=== PATIENT | male | born 1940 | race Caucasian/White ===

== ENCOUNTER 2018-09-20 13:38 | Inpatient (IN) | payer OTHER ==
[~2018-09-20] VITALS: Ht 177.8 cm; Wt 85.3 kg
--- NOTE | 2018-09-20 02:05 | NUR ---
ROUNDS PATIENT SHIVERING IN BED, COMPLAINING ABOUT BEING COLD. TEMPERATURE TAKEN PER RECTAL, NOTED RECTAL TEMP = 101.6. COOLING MEASURES TAKEN AND TYLENOL GIVEN. WILL CONTINUE TO MONITOR. Addendum: 09/21/18 at 0339 by DO CARBAJAL RN RN CORRECTED DATE: 09/21/18 0205
[2018-09-20] MEDS ORDERED: SODIUM CHLORIDE 0.9% 1,000 ML IVB ONE (14:54)
[2018-09-20] MEDS ORDERED: PROMETHAZINE HCL 25 MG/ML 1ML IV PRN (15:00)
[2018-09-20] MEDS ORDERED: PANTOPRAZOLE 40 MG/10 ML VIAL INJ IV ONE (15:00)
[2018-09-20 15:28] LABS: Basophils # (auto) 0.1 uL; Basophils % (auto) 0.9 % (0.0-2.0); Eosinophils # (auto) 0 uL; Hematocrit 40.5 % (41.0-53.0); Hemoglobin 13.4 g/dL (13.5-17.5); Lymphocytes # (auto) 1.1 uL; Mean Corpuscular Hemoglobin 30.6 pg (28.0-32.0); Mean Corpuscular Volume 92.8 fL (80.0-100.0); Monocytes # (auto) 0.8 uL; Monocytes % (auto) 5.1 % (0.0-12.0); Neutrophils # (auto) 14.3 uL; Platelet Count (auto) 119 10^3/uL (140-450); Red Blood Cells 4.36 10^6/uL (4.5-5.90); Red Cell Distribution Width 15.3 % (11.8-14.3); White Blood Cell 16.5 10^3/uL (4.4-10.8)
[2018-09-20 15:37] LABS: Albumin 2.8 g/dL (3.4-5.0); Calcium 7.9 mg/dL (8.5-10.1); Potassium 3.8 mmol/L (3.5-5.1)
[2018-09-20 15:41] LABS: BUN/Creatinine Ratio 17.4; Bilirubin, Total 1.4 mg/dL (0.2-1.0); Total Protein 7.7 g/dL (6.4-8.2)
[2018-09-20] MEDS ORDERED: PANTOPRAZOLE 40 MG TAB PO ONE (16:30)
[2018-09-20 17:01] LABS: Magnesium 0.7 mg/dL (1.6-2.6)
[2018-09-20] MEDS: MAGNESIUM SULFATE 1GM/100ML 100 ML IV SCH ×3 (17:19→21:27)
[2018-09-20 17:25] LABS: INR 1.21 (0.9-1.15); Partial Thromboplastin Time 33.1 sec (23.78-33.04); Prothrombin Time 12.8 sec (9.27-12.13)
[2018-09-20] MEDS ORDERED: cefTRIAXone 1GM/50ML D5W 50 ML IV ONE (18:30)
[2018-09-20] MEDS ORDERED: ACETAMINOPHEN 650 mg PER 20 mL UD PO ONE (18:45)
[2018-09-20] MEDS ORDERED: ACETAMINOPHEN 650 MG RECT SUPP PR ONE (18:45)
[2018-09-20] MEDS ORDERED: LORazepam 2MG/ML-1ML VIAL ONE (18:47)
[2018-09-20] MEDS ORDERED: SUCCINYLCHOLINE CHLORIDE 20 MG/ML 10ML VIAL IV ONE ×2 (18:49→19:00)
[2018-09-20] MEDS ORDERED: ETOMIDATE (2MG/ML) 20ML VIAL IV ONE ×2 (18:49→19:00)
[2018-09-20] MEDS ORDERED: MIDAZOLAM DRIP 50 mg/50mL 0 ML IV ONE (18:55)
[2018-09-20] MEDS ORDERED: LORazepam 2MG/ML-1ML VIAL IV ONE (19:00)
[2018-09-20 19:25] LABS: Urine Bacteria MOD /hpf (None Seen); Urine Blood TRACE /uL (Negative); Urine Mucus FEW (None Seen); Urine Specific Gravity 1.011 (1.001-1.035); Urine WBC 155 /hpf (0 - 3)
[2018-09-20] MEDS ORDERED: NITROGLYCERIN 0.4 MG SL TAB SL PRN (21:00)
[2018-09-20] MEDS ORDERED: MORPHINE SULF INJ 2 MG/ML SYRINGE 1ML IV PRN (21:00)
[2018-09-20] MEDS ORDERED: ALBUTEROL SULF 2.5 MG/0.5ML(0.5%) NEB SOLN NEB PRN (21:00)
[2018-09-20] MEDS ORDERED: LEVOFLOXACIN 250MG 50 ML IV ONE (21:00)
[2018-09-20] MEDS ORDERED: IPRATROPIUM BROM 0.5 MG/2.5ML INH SOL NEB PRN (21:00)
[2018-09-20] MEDS ORDERED: DEXTROSE (50%) 50ML SYRG IV PRN (21:00)
[2018-09-20] MEDS ORDERED: HYDROcodone-ACET 5/325MG TAB PO PRN (21:00)
[2018-09-20] MEDS ORDERED: ONDANSETRON HCL 4 MG/2 ML VIAL IV PRN (21:00)
[2018-09-20] MEDS: SODIUM CHLORIDE 0.9% 1,000 ML IV SCH (21:24)
[2018-09-20] MEDS ORDERED: ACETAMINOPHEN 500 MG TAB PO ONE (22:00)
[2018-09-20 22:02] LABS: Hematocrit 38.1 % (41.0-53.0); Hemoglobin 12.6 g/dL (13.5-17.5)
--- NOTE | 2018-09-20 22:15 | NUR ---
RECEIVED REPORT FROM CUTTER HEAD SHARPENER.
[2018-09-20 22:30] VITALS: BP 110/51
--- NOTE | 2018-09-20 22:30 | NUR ---
Admit to [facility] admitted to [facility] via gurney on deputy coroner, and portable 02 ON 6L SIMPLE MASK. Patient transfered to bed, connected to unit monitoring and oxygen, and weighed by bre[facility]. [facility]. Patient oriented to DO CARBAJAL, primary RN, unit, room, bed, and unit policies regarding patient care and visiting hours. All questions and concerns addressed, patient verbalized understanding. Bed in lowest position, side rails up x2, call light wtihin reach. Will continue to monuitor.
[2018-09-21] VITALS (47 sets, daily range): BP systolic 77–151; BP diastolic 35–80
[2018-09-21] MEDS: InsuLIN REG 1unit/0.01ml Soln (100units/ml) SC SCH ×4 (00:59→17:36)
[2018-09-21] MEDS: ACCU-CHEK COMFORT CURVE STRIP VI SCH ×4 (00:59→17:36)
[2018-09-21] MEDS: hydrALAZINE HCL 25 MG TAB PO SCH ×3 (01:03→21:53)
[2018-09-21] MEDS: ATORVASTATIN 20 MG TAB PO SCH ×2 (01:03→21:53)
--- NOTE | 2018-09-21 01:05 | NUR ---
RELAYED ELEVATED TROPONIN LABS TO HOSPITALIST. NO NEW ORDERS.
[2018-09-21] MEDS: ACETAMINOPHEN 325 MG TAB PO PRN ×2 (02:30→09:12)
--- NOTE | 2018-09-21 03:40 | NUR ---
REASSESSED TEMPERATURE. TEMP INCREASED TO 102.4 DEGREES FAHRENHEIT. ICE PACKS AND COOL COMPRESS APPLIED. WILL CONTINUE TO MONITOR.
--- NOTE | 2018-09-21 05:18 | NUR ---
PAGED HOSPITALIST IN REGARDS TO POSITIVE BLOOD CULTURES, AWAITING CALL BACK.
--- NOTE | 2018-09-21 05:25 | NUR ---
HOSPITALIST CALLED BACK. RELAYED BLOOD CULTURE RESULTS, RECEIVED NO NEW ORDERS AT THIS TIME.
--- NOTE | 2018-09-21 05:35 | NUR ---
MORNING CARE PATIENT REFUSED BED BATH. PARTIAL LINEN CHANGE AND GOWN CHANGED. NO SIGNS OR SYMPTOMS OF SOB, PAIN OR DISTRESS. REPOSITIONED PATIENT FOR COMFORT. BED IN LOWEST POSITION, SIDE RAILS UP X2, CALL LIGHT WITHIN REACH.
[2018-09-21 06:01] LABS: Basophils # (auto) 0 uL; Basophils % (auto) 0.2 % (0.0-2.0); Eosinophils # (auto) 0 uL; Hematocrit 38.8 % (41.0-53.0); Lymphocytes % (auto) 6.1 % (10.0-50.0); Mean Corpuscular Hemoglobin 30.7 pg (28.0-32.0); Mean Corpuscular Hgb Conc. 33.5 g/dL (32.0-36.0); Mean Corpuscular Volume 91.5 fL (80.0-100.0); Monocytes # (auto) 0.8 uL; Monocytes % (auto) 5.2 % (0.0-12.0); Neutrophils # (auto) 14.3 uL; Neutrophils % (auto) 88.5 % (37.0-80.0); Platelet Count (auto) 112 10^3/uL (140-450); Red Blood Cells 4.24 10^6/uL (4.5-5.90); Red Cell Distribution Width 14.9 % (11.8-14.3); White Blood Cell 16.2 10^3/uL (4.4-10.8)
[2018-09-21 06:29] LABS: Potassium 3.7 mmol/L (3.5-5.1)
[2018-09-21 06:36] LABS: Albumin 2.5 g/dL (3.4-5.0); BUN/Creatinine Ratio 18.2; Calcium 7.9 mg/dL (8.5-10.1)
[2018-09-21 06:38] LABS: Bilirubin, Total 1.1 mg/dL (0.2-1.0); Total Protein 7.2 g/dL (6.4-8.2)
--- NOTE | 2018-09-21 06:45 | NUR ---
END OF SHIFT PATIENT IN BED SLEEPING. NO SIGNS OR SYMPTOMS OF SOB, PAIN OR DISTRESS. ICE PACKS PLACED UNDER ARMS DUE TO SLIGHTLY INCREASED RECTAL TEMP OF 100.2 DEGREES FAHRENHEIT. PATIENT CURRENTLY ON SIMPLE MASK 5L , SAT - 98%. BED IN LOWEST POSITION, SIDE RAILS UP X2, CALL LIGHT WITHIN REACH. WILL ENDORSE CARE TO DAY SHIFT RN.
--- NOTE | 2018-09-21 07:25 | NUR ---
PT. ASSESSED FOR PRN. MN. TX. , NO RESP. DISTRESS OR SOB NOTED AT THIS TIME. PT. IS IN BED WITH ICE PACKS UNDER HIS ARM PITS SHIVERING. PT. WAS RUNNING A TEMP., HR 100,RESP. 24, SP02 96%. PT'S SPO2 TO DOES NOT COME IN ACCURATELY SOMETIMES, BECAUSE OF HIS SHIVERING. Addendum: 09/21/18 at 0728 by Eli Sheridan RT Amended: Links added.
--- NOTE | 2018-09-21 07:29 | NUR ---
PRN. [place]. TX. NOT INDICATED AT THIS TIME, WILL CONTINUE TO MONITOR RESP. STATUS, BS. ARE CLEAR.
--- NOTE | 2018-09-21 07:30 | NUR ---
RECEIVED PATIENT LYING IN BED AWAKEN TO NAME BEING CALLED, A/O TIMES4, O2 AT 5L BY THE SIMPLE MASK , SALINE LOCK TO THE LFA FLUSHED AND PATENT,NS INFUSING INTO THE RT HAND AT 60ML/HR BY THE IV PUMP, MA TO GRAVITY, HILDA PAIN AND NAUSEA AT THIS TIME
--- NOTE | 2018-09-21 08:00 | NUR ---
TEMP AT 98.3 ORALLY AND 101.2 RECTALLY ICE TO ARMPITS FOR COOLING MEASURES AND WILL GIVE TYLENOL WHEN TIME IS MET
--- NOTE | 2018-09-21 08:25 | NUR ---
LYING IN BED WITH YES CLOSED, NO N/V OR PAIN,
--- NOTE | 2018-09-21 09:05 | NUR ---
RECEIVED CALL FROM DR CHAN AND STATED TO ORDER A KIDNEY US FOR TODAY AND BMP
--- NOTE | 2018-09-21 09:15 | NUR ---
TYLENOL GIVEN FOR TEMP 101.2 ORAL AND ICE PACKS TO JEREMY LATERAL ARM PITS
[2018-09-21] MEDS: FUROSEMIDE 40 MG TAB PO SCH (09:53)
[2018-09-21] MEDS: PANTOPRAZOLE 40 MG TAB PO SCH (09:53)
[2018-09-21] MEDS ORDERED: METOPROLOL SUCCINATE XL 50 MG TAB PO SCH ×2 (10:00→12:27)
--- NOTE | 2018-09-21 10:04 | NUR ---
EXPLAIN MEDICATIONS TO THE PATIENT REGARDING THE DOSAGE, USAGE, AND THE SIDE EFFECTS, VERBALIZED THAT HE UNDERSTOOD AND MEDS GIVEN ORDERED, NO N/V, OR PAIN, NO VOMITING BLOOD
--- NOTE | 2018-09-21 10:20 | NUR ---
TEMP RECHECKED 100.5
--- NOTE | 2018-09-21 10:30 | NUR ---
DR EDMOND IN TO SEE THE PATIENT AND GAS COMPRESSOR TURBINE OPERATOR HERE TO DO THE ECHO
--- NOTE | 2018-09-21 11:00 | NUR ---
ECHO COMPLETE, EXPLAIN TO THE PATIENT THAT WE NEED TO COLLECT A URINE SAMPLE
--- NOTE | 2018-09-21 11:15 | NUR ---
KIDNEY ULTRASOUND BEING DONE
[2018-09-21] MEDS ORDERED: VANCOMYCIN 1GM/250ML 250 ML IV ONE (11:30)
[2018-09-21] MEDS ORDERED: cefTRIAXone 1GM/50ML D5W 50 ML IV ONE (11:30)
--- NOTE | 2018-09-21 11:30 | NUR ---
URINE COLLECTED AND SENT TO THE LAB ANTIBIOTICS STARTED
[2018-09-21] MEDS ORDERED: INDOMETHACIN 25 MG CAP PO ONE (12:30)
--- NOTE | 2018-09-21 12:30 | NUR ---
NOTIFIED DR EDMOND THAT THE PATIENT HR IS IN THE 130'S AND HE IS HAVING MULTIPLE PVC'S, STATED TO GIVE MAGNESIUM
--- NOTE | 2018-09-21 12:45 | NUR ---
NOTIFIED DR EDMOND THAT THE PATIENTS HR HAS GONE UP TO THE 160'S AND STATED TO START CARDIZEM AND NEOSYNEPHRINE DRIP ON THE PATIENT
[2018-09-21] MEDS: SODIUM CHLORIDE 0.9% 1,000 ML IV SCH (13:00)
[2018-09-21] MEDS ORDERED: DILTIAZEM 125mg/125ml BAG KIT 125 ML IV SCH (13:00)
--- NOTE | 2018-09-21 13:00 | NUR ---
CALLED TO EVALUATE PT. , FOR PRN. MN. TX., PT'S HR 160'S-180'S A-FIB. BS. ARE CLEAR, UNABLE TO GIVE MN. TX DUE TO HR. PT. IN NO RESP. DISTRESS. HE HAS ICE PACKS UNDER HIS ARMS, DUE INCREASED TEMP., PT. IS AWAKE, ALERT AND APPROPRIATE TO QUESTIONS AT THIS TIME, WILL CONTINUE TO MONITOR RESP. STATUS.
[2018-09-21] MEDS ORDERED: PHENYLEPHRINE INJ 20 MG in SODIUM CHL 0.9% 250 ML IV SCH (13:02)
[2018-09-21] MEDS ORDERED: DILTIAZEM 125mg/125ml BAG KIT 125 ML IV ONE (13:16)
--- NOTE | 2018-09-21 13:20 | NUR ---
CARDIZEM AT 5MG STATED FOR HEART RATE IN THE 170'S PATIENT HAS CONVERTED TO AFIB
[2018-09-21] MEDS: MAGNESIUM SULFATE 1GM/100ML 100 ML IV SCH ×2 (13:33→16:24)
--- NOTE | 2018-09-21 13:45 | NUR ---
BLOOD CULTURES DRAWN FOR TEMP OF 102.9, COOLING MEASURE IN PLACE
[2018-09-21] MEDS ORDERED: ERTAPENEM SOD INJ 1 GM in SODIUM CHL 0.9% 50 ML IV ONE (14:45)
--- NOTE | 2018-09-21 14:47 | NUR ---
SITTING UP IN BED TALKING TO HIS WHO IS AT THE BEDSIDE, CARDIZEM INFUSING BY THE IV PUMP INTO THE RAC 22G, MAGNESIUM INFUSING INTO THE LEFT HAND BOTH BY THE IV PUMP, RECHECKED TEMP 98'6 ORALLY AND RECTAL 100.5
--- NOTE | 2018-09-21 15:00 | NUR ---
DR WITT IN TO SEE THE PATIENT
--- NOTE | 2018-09-21 15:32 | NUR ---
PATIENT SEMI FOWLERS IN BED, STATES HE IS FEELING BETTER
[2018-09-21] MEDS: MEROPENEM 1GM IVPB 100 ML IV SCH ×2 (15:38→21:51)
--- NOTE | 2018-09-21 15:50 | NUR ---
SON IN TO VISIT WITH THE PATIENT
[2018-09-21] MEDS ORDERED: OMEP20TA PO (16:29)
[2018-09-21] MEDS ORDERED: FLUO10CA15 PO (16:30)
[2018-09-21] MEDS ORDERED: METO-169 PO (16:32)
[2018-09-21] MEDS ORDERED: TAMS0.4C36 PO (16:37)
[2018-09-21] MEDS ORDERED: TIZA4CAP PO (16:39)
[2018-09-21] MEDS ORDERED: FURO20TA PO (16:41)
[2018-09-21] MEDS ORDERED: GABA100C9 PO (16:41)
[2018-09-21] MEDS ORDERED: ATOR20TA50 PO (16:44)
[2018-09-21] MEDS ORDERED: METF-370 PO (16:50)
--- NOTE | 2018-09-21 16:59 | NUR ---
PATIENT GOING IN AND OUT OF SR TO AFIB, GOING HOME
--- NOTE | 2018-09-21 17:16 | NUR ---
RECHECKED TEMP RECTAL 99.3, LYING IN BD WITH EYES CLOSED, APPEARS TO BE SLEEPING, O2 TURNED DOWN TO 5L BY THE SIMPLE MASK O2 SAT 97%
[2018-09-21] MEDS: TAMSULOSIN HYDROCHLORIDE 0.4 MG CAP PO SCH (17:55)
--- NOTE | 2018-09-21 18:09 | NUR ---
PT ASSESSED FOR PRN MED NEB TX. SPO2 98% ON 6L SIMPLE MASK. PT DENIES ANY RESPIRATORY DISTRESS. NO TX INDICATED AT THIS TIME. PT IS AWARE TO HAVE RT PAGED IF TX NEEDED.
--- NOTE | 2018-09-21 18:10 | NUR ---
1800 MEDS GIVEN, CARDIZEM DRIP AT 5MG/HR AND NS AT 60ML/HR INFUSING BOTH BY THE IV PUMP, 02 AT 5L BY THE SIMPLE MASK, A/O TIMES 4, MA TO GRAVITY, SALINE LOCK TO THE LFA INTACT AND PATENT, PATIENT DENIES PAIN AND NO VOMITING DURING THIS SHIFT, REMOVED THE COOLING MEASURES, WILL CONTINUED TO MONITOR AND GIVE REPORT TO THE NEXT SHIFT
--- NOTE | 2018-09-21 18:40 | NUR ---
GOT PATIENT DINNER, TO EAT BUT STATES HE DOESN'T WANT ANYTHING
--- NOTE | 2018-09-21 19:25 | NUR ---
OPENING SHIFT RECEIVED REPORT FROM DAY SHIFT RN. ASSUMED CARE OF PATIENT. PATIENT IN BED SLEEPING WITH NO SIGNS OR SYMPTOMS OF SOB, PAIN OR DISTRESS. PATIENTS CURRENT TEMPERATURE PER RECTAL 98.9 DEGREES FAHRENHEIT. CURRENTLY ON 5L 02 SIMPLE MASK, 02 SAT - 94%. CARDIZEM DRIP RUNNING AT 5ML/HR. UPDATED PATIENT ON PLAN OF CARE. BED IN LOWEST POSITION, SIDE RAILS UP X2, CALL LIGHT WITHIN REACH. WILL CONTINUE TO MONITOR.
--- NOTE | 2018-09-21 19:45 | NUR ---
TITRATED CARDIZEM DRIP DOWN TO 4ML/HOUR, WILL CONTINUE TO MONITOR.
[2018-09-21] MEDS ORDERED: LEVOFLOXACIN 250MG 50 ML IV SCH (21:00)
--- NOTE | 2018-09-21 22:35 | NUR ---
ROUNDS PATIENT IN BED SLEEPING WITH NO SIGNS OR SYMPTOMS OF SOB, PAIN OR DISTRESS. CURRENTLY ON 5L 02 SIMPLE MASK, 02 SAT - 96%. BED IN LOWEST POSITION, SIDE RAILS UP X2, CALL LIGHT WITHIN REACH. WILL CONTINUE TO MONITOR.
[2018-09-22] VITALS (42 sets, daily range): BP systolic 80–134; BP diastolic 43–94
--- NOTE | 2018-09-22 00:10 | NUR ---
NOTED RECTAL TEMPERATURE OF 101.5 DEGREE FAHRENHEIT, COOLING MEASURES APPLIED, TYLENOL GIVEN. WILL CONTINUE TO MONITOR.
[2018-09-22] MEDS: ACETAMINOPHEN 325 MG TAB PO PRN ×4 (00:27→23:49)
[2018-09-22] MEDS: ACCU-CHEK COMFORT CURVE STRIP VI SCH ×4 (00:52→17:46)
--- NOTE | 2018-09-22 01:05 | NUR ---
TEMPERATURE DECREASED TO 100.3 DEGREES FAHRENHEIT, COOLING MEASURES CONTINUED. WILL CONTINUE TO MONITOR.
--- NOTE | 2018-09-22 02:50 | NUR ---
ROUNDS PATIENT IN BED SLEEPING WITH NO SIGNS OR SYMPTOMS OF SOB, PAIN, OR DISTRESS. REPOSITIONED PATIENT FOR COMFORT. BED IN LOWEST POSITION SIDE RAILS UP X2, CALL LIGHT WITHIN REACH. WILL CONTINUE TO MONITOR.
--- NOTE | 2018-09-22 04:35 | NUR ---
MORNING HYGIENE PATIENT REFUSED BED BATH. PATIENT AGREED TO WASH FACE WITH WASH CLOTH. PARTIAL LINEN CHANGE AND GOWN CHANGED. PATIENT REPOSITIONED FOR COMFORT. PATIENT CURRENTLY ON 5L 02 SIMPLE MASK, 02 SAT - 95%. CURRENT RECTAL TEMPERATURE AT 98.1 DEGREES FAHRENHEIT. BED IN LOWEST POSITION, SIDE RAILS UP X2, CALL LIGHT WITHIN REACH. WILL CONTINUE TO MONITOR.
[2018-09-22 05:15] LABS: Basophils # (auto) 0 uL; Basophils % (auto) 0.1 % (0.0-2.0); Eosinophils # (auto) 0 uL; Eosinophils % (auto) 0.4 % (0.0-7.0); Hemoglobin 13.5 g/dL (13.5-17.5); Lymphocytes # (auto) 0.8 uL; Lymphocytes % (auto) 10.1 % (10.0-50.0); Mean Corpuscular Hemoglobin 30.4 pg (28.0-32.0); Mean Corpuscular Hgb Conc. 32.9 g/dL (32.0-36.0); Mean Corpuscular Volume 92.5 fL (80.0-100.0); Monocytes # (auto) 0.4 uL; Monocytes % (auto) 5.7 % (0.0-12.0); Neutrophils # (auto) 6.5 uL; Neutrophils % (auto) 83.7 % (37.0-80.0); Nucleated Red Blood Cells % 0.1 %; Platelet Count (auto) 93 10^3/uL (140-450); Red Blood Cells 4.43 10^6/uL (4.5-5.90); Red Cell Distribution Width 15.1 % (11.8-14.3); White Blood Cell 7.7 10^3/uL (4.4-10.8)
[2018-09-22 05:32] LABS: INR 1.11 (0.9-1.15); Partial Thromboplastin Time 35.2 sec (23.78-33.04); Prothrombin Time 11.8 sec (9.27-12.13)
[2018-09-22 05:37] LABS: Albumin 2.3 g/dL (3.4-5.0); BUN/Creatinine Ratio 18.3; Magnesium 2.2 mg/dL (1.6-2.6); Potassium 3.8 mmol/L (3.5-5.1)
[2018-09-22 05:40] LABS: Bilirubin, Total 0.6 mg/dL (0.2-1.0); Total Protein 6.6 g/dL (6.4-8.2)
[2018-09-22] MEDS: MEROPENEM 1GM IVPB 100 ML IV SCH ×3 (05:48→21:36)
[2018-09-22] MEDS: InsuLIN REG 1unit/0.01ml Soln (100units/ml) SC SCH ×4 (05:50→17:46)
--- NOTE | 2018-09-22 06:46 | NUR ---
END OF SHIFT PATIENT IN BED SLEEPING WITH NO SIGNS OR SYMPTOMS OF SOB, PAIN OR DISTRESS. PATIENT CURRENTLY ON 5L 02 SIMPLE MASK, 02 SAT - 96. RECTAL TEMPERATURE 98.9 DEGREES FAHRENHEIT. REPOSITIONED FOR COMFORT. BED IN LOWEST POSITION, SIDE RAILS UP X2, CALL LIGHT WITHIN REACH. WILL ENDORSE CARE TO DAY SHIFT RN.
--- NOTE | 2018-09-22 06:56 | NUR ---
PHARMACY CALLED IN [facility], SPOKE WITH DIANE IN REGARDS TO REPLENISHING IV CARDIZEM DRIP SOLUTION. PHARMACY WILL SEND UP WHEN MADE.
[2018-09-22] MEDS: SODIUM CHLORIDE 0.9% 1,000 ML IV SCH ×2 (06:58→23:37)
--- NOTE | 2018-09-22 07:30 | NUR ---
RECEIVED PATIENT SITTING UP IN BED A/O TIMES 4, O2 AT 5L BY THE N/C, SALINE LOCK TO THE LFA INTACT AND PATENT, RT HAND WITH NS AT 60ML/HR INFUSING BY THE IV PUMP, CARDIZEM DRIP AT 4ML/HR INFUSING BY THE IV PUMP INTO THE RAC, MA TO GRAVITY, DENIES PAIN AND SOB
--- NOTE | 2018-09-22 08:00 | NUR ---
SITTING UP IN BED STATES HE DOING BETTER TODAY, DOESN'T FEEL BAD
--- NOTE | 2018-09-22 09:00 | NUR ---
NO COMPLAINTS OF PAIN LYING IN BED
[2018-09-22] MEDS: hydrALAZINE HCL 25 MG TAB PO SCH ×2 (09:53→21:37)
[2018-09-22] MEDS ORDERED: ERTAPENEM SOD INJ 1 GM in SODIUM CHL 0.9% 50 ML IV SCH (10:00)
[2018-09-22] MEDS: FUROSEMIDE 40 MG TAB PO SCH (10:06)
[2018-09-22] MEDS: PANTOPRAZOLE 40 MG TAB PO SCH (10:07)
--- NOTE | 2018-09-22 10:10 | NUR ---
DISCUSSED MEDICATIONS WITH THE PATIENT REGARDING THE DOSAGE ,USAGE, AND THE SIDE EFFECTS, VERBALIZED THAT HE UNDERSTOOD AND MEDS GIVEN ORDERED
--- NOTE | 2018-09-22 10:30 | NUR ---
WATCHING TV, STATES DOESN'T FEEL LIKE HE HAS A TEMPERATURE DOING BETTER TODAY
--- NOTE | 2018-09-22 11:31 | NUR ---
sitting up in bed watching tv, no complaints, still having pvc's
--- NOTE | 2018-09-22 12:00 | NUR ---
Respiratory note: PT CHECKED FOR PRN MED NEB TX. TX IS NOT INDICATED AT THIS TIME. PT IS AWARE TO HAVE RT PAGED IF THEY BECOME SOB. SPO2 95% ON 3L NC HR 100 RR 20 B/S DIMINISHED.
--- NOTE | 2018-09-22 12:15 | NUR ---
DR EDMOND IN TO SEE THE PATIENT NO NEW ORDERS
--- NOTE | 2018-09-22 12:19 | NUR ---
IN TO SEE THE PATIENT
--- NOTE | 2018-09-22 12:35 | NUR ---
MEDICATED FOR TEMP RECTAL 101.8 AND ORAL 100.8 WITH TYLENOL
[2018-09-22] MEDS ORDERED: DILTIAZEM HCL 120MG ER CAP PO ONE (12:45)
--- NOTE | 2018-09-22 13:14 | NUR ---
CHOKED ON HIS LUNCH STATED IT WAS TOO DRY, ATE JELL-O AND FRUIT
--- NOTE | 2018-09-22 14:15 | NUR ---
SITTING UP IN BED WITH EYES CLOSED , NOT SLEEPING OPENS EYES WHEN YOU COME IN THE ROOM
--- NOTE | 2018-09-22 15:35 | NUR ---
DR WITT IN TO SEE THE PATIENT AND STATES HE IS GOING TO START HIM ON VANCOMYCIN FOR THE POSITIVE BLOOD CULTURES, VAN D/NESSA
[2018-09-22] MEDS ORDERED: VANCOMYCIN PER PHARMACY 0 MG IV SCH (16:30)
--- NOTE | 2018-09-22 16:34 | NUR ---
LINEN CHANGED , ICE PACKS STILL TO THE ARMS PITS, DUE TO TEMP GOING UP AND DOWN
--- NOTE | 2018-09-22 17:30 | NUR ---
LYING IN BED WITH EYES OPEN LOOKING AT THE TV ON AND OFF
[2018-09-22] MEDS: TAMSULOSIN HYDROCHLORIDE 0.4 MG CAP PO SCH (17:32)
[2018-09-22] MEDS ORDERED: VANCOMYCIN 1,250 MG in D5W 5% 250 ML IV SCH (18:00)
--- NOTE | 2018-09-22 18:20 | NUR ---
PULLED HIMSELF UP IN THE BED, TO EAT AND HR WENT UP TO THE 150'S AND PATIENT STATES HE IS GETTING A TEMP AGAIN, ANTIBIOTICS INFUSING INTO THE RT HAND AT AT 166.6MLML/HR BY THE IV PUMP, MA TO GRAVITY, O2 AT 4L BY N/C, DENIES PAIN JUST HR ELEVATED AND O2 SAT DROPPING BUT REMINDED PATIENT BREATH THROUGH HIS NOSE, PATIENT WANTING TO EAT HIS DINNER AND FEEDING HIMSELF
--- NOTE | 2018-09-22 18:40 | NUR ---
patient shivering temp 100'6 rectal, gave tylenol, hr in the 150's and b/p, reminded patient to breath through his nose where the oxygen is going
--- NOTE | 2018-09-22 19:07 | NUR ---
STATES HE IS FEELING BETTER HR DOWN TO 110 AND O2 SAT 96%, WILL CONTINUE TO MONITOR AND GIVE REPORT OT THE NEXT SHIFT
--- NOTE | 2018-09-22 19:15 | NUR ---
OPENING SHIFT RECEIVED REPORT FROM DAY SHIFT RN. ASSUMED CARE OF PATIENT. PATIENT IN BED WITH NO SIGNS OR SYMPTOMS OF SOB, PAIN OR DISTRESS. CURRENTLY ON NASAL CANULA 4L SAT - 95%. CURRENT RECTAL TEMPERATURE - 100.6 DEGREES FAHRENHEIT. UPDATED PATIENT ON PLAN OF CARE. REPOSITIONED PATIENT FOR COMFORT. BED IN LOWEST POSITION, SIDE RAILS UP X2, CALL LIGHT WITHIN REACH. WILL CONTINUE TO MONITOR.
--- NOTE | 2018-09-22 20:20 | NUR ---
ROUNDS PATIENT NOTED TO HAVE AN INCREASE IN TEMPERATURE PER RECTAL - 102.2 DEGREES FAHRENHEIT. COOLING MEASURES APPLIED. PATIENT 02 SAT DROPPED TO 87% ON 4L NASAL CANULA. SWITCHED TO SIMPLE MASK ON 5L 02, 02 SAT WENT UP TO 93%. NO SIGNS OR SYMPTOMS OF SOB, PAIN OR DISTRESS. BED IN LOWEST POSITION, SIDE RAILS UP X2, CALL LIGHT WITHIN REACH. WILL CONTINUE TO MONITOR.
[2018-09-22] MEDS: ATORVASTATIN 20 MG TAB PO SCH (21:36)
[2018-09-22] MEDS: AMIODARONE HCL 200 MG TAB PO SCH (21:37)
--- NOTE | 2018-09-22 21:45 | NUR ---
RECHECKED RECTAL TEMPERATURE - 99.9 DEGREES FAHRENHEIT. COOLING MEASURES STILL APPLIED. WILL CONTINUE TO MONITOR.
[2018-09-22] MEDS ORDERED: ENOXAPARIN SOD 100 MG/1 ML SYRINGE SC SCH (22:00)
[2018-09-23] VITALS: BP 145/91
--- NOTE | 2018-09-23 00:05 | NUR ---
ROUNDS RECHECKED RECTAL TEMPERATURE - 100.9 DEGREES FAHRENHEIT. PATIENT REFUSED TO CONTINUE WITH COOLING MEASURES. WILL CONTINUE TO MONITOR.
--- NOTE | 2018-09-23 00:35 | NUR ---
PATIENT REFUSING TO USE SIMPLE MASK. PLACED ON NASAL CANULA 3L , SAT - 90%. WILL CONTINUE TO MONITOR.
[2018-09-23] MEDS: ACCU-CHEK COMFORT CURVE STRIP VI SCH ×4 (00:43→18:07)
--- NOTE | 2018-09-23 00:50 | NUR ---
PATIENT 02 SAT DROPPED TO 88%. TURNED UP 02 TO 4L NASAL CANULA. WILL CONTINUE TO MONITOR.
--- NOTE | 2018-09-23 00:55 | NUR ---
PATIENT ON THE PHONE SPEAKING TO .
--- NOTE | 2018-09-23 00:57 | NUR ---
PATIENT REQUESTING TO BE PLACED ON DNR STATUS, WILL ENDORSE TO DAY SHIFT RN.
--- NOTE | 2018-09-23 01:17 | NUR ---
Respiratory note: PT ASSESSED FOR PRN MED NEB TX, NO TX INDICATED AT THIS TIME. PT IS SLEEPING, APPEARS COMFORTABLE WITH NO NOTED DISTRESS. HR 124 RR 16 SPO2 92% ON 4L N/C. RN AWARE TO HAVE RT PAGED IF NEEDED.
--- NOTE | 2018-09-23 03:34 | NUR ---
ROUNDS PATIENT SLEEPING IN BED. NO SIGNS OR SYMPTOMS OF SOB, PAIN OR DISTRESS. CURRENTLY ON 4L NASAL CANULA, 02 SAT - 95%. BED IN LOWEST POSITION, SIDE RAILS UP X2, CALL LIGHT WITHIN REACH. WILL CONTINUE TO MONITOR.
--- NOTE | 2018-09-23 03:59 | NUR ---
PATIENT REFUSED RECTAL TEMPERATURE AND BLOOD PRESSURE ASSESSMENT. WILL CONTINUE TO MONITOR.
[2018-09-23 04:00] VITALS: BP 132/74
--- NOTE | 2018-09-23 04:02 | NUR ---
MORNING CARE PATIENT REFUSED BED BATH, LINEN CHANGE, AND GOWN CHANGE. PATIENT STATES, "I HAVEN'T BEEN ABLE TO SLEEP FOR 3 DAYS, ID JUST LIKE TO TRY TO GET SOME REST TONIGHT." BED IN LOWEST POSITION, SIDE RAILS UP X2, CALL LIGHT WITHIN REACH. WILL CONTINUE TO MONITOR.
--- NOTE | 2018-09-23 04:40 | NUR ---
SAND SHOVELER AT BEDSIDE. BLOOD DRAWN FOR CBC AND BMP.
--- NOTE | 2018-09-23 05:05 | NUR ---
SPOKE WITH WITH CHASTITY ON THE PHONE. SHE STATES THAT THE PATIENT WANTS TO GO HOME RIGHT NOW. UPDATE PATIENT ON PLAN OF CARE, PATIENT AGREED TO STAY UNTIL FURTHER NOTICE. MADE AWARE AND STATES SHE WILL CALL LATER TODAY. PATIENT AGREED TO A LINEN CHANGE AND GOWN CHANGE. WILL CONTINUE TO MONITOR. Addendum: 09/23/18 at 0540 by DO CARBAJAL RN RN PATIENT ALSO AGREED TO A BED BATH WITH CHG WIPES AND WASH CLOTHS FOR THE FACE.
[2018-09-23] MEDS: MEROPENEM 1GM IVPB 100 ML IV SCH ×3 (05:46→21:55)
[2018-09-23 05:54] LABS: Basophils # (auto) 0 uL; Basophils % (auto) 0.4 % (0.0-2.0); Eosinophils # (auto) 0 uL; Eosinophils % (auto) 0.3 % (0.0-7.0); Hematocrit 40.2 % (41.0-53.0); Hemoglobin 13.5 g/dL (13.5-17.5); Lymphocytes # (auto) 1.2 uL; Lymphocytes % (auto) 16.6 % (10.0-50.0); Mean Corpuscular Hemoglobin 30.6 pg (28.0-32.0); Mean Corpuscular Hgb Conc. 33.5 g/dL (32.0-36.0); Mean Corpuscular Volume 91.4 fL (80.0-100.0); Monocytes # (auto) 0.5 uL; Monocytes % (auto) 7.3 % (0.0-12.0); Neutrophils # (auto) 5.2 uL; Neutrophils % (auto) 75.4 % (37.0-80.0); Nucleated Red Blood Cells % 0.2 %; Platelet Count (auto) 102 10^3/uL (140-450); Red Cell Distribution Width 15.1 % (11.8-14.3)
[2018-09-23] MEDS: InsuLIN REG 1unit/0.01ml Soln (100units/ml) SC SCH ×4 (06:00→18:00)
--- NOTE | 2018-09-23 06:05 | NUR ---
Respiratory note: HR 92, RR 20, POX 93% ON 4 L NC, BS CLEAR THROUGHOUT. NO SIGNS OR SYMPTOMS OF RESPIRATORY DISTRESS NOTED. PT INFORMED TO HIT CALL BUTTON IF FEELING SOB OR WHEEZING.
[2018-09-23 06:28] LABS: BUN/Creatinine Ratio 20.7; Potassium 3.7 mmol/L (3.5-5.1)
--- NOTE | 2018-09-23 07:02 | NUR ---
END OF SHIFT PATIENT IN BED SLEEPING WITH NO SIGNS OR SYMPTOMS OF SOB, PAIN OR DISTRESS. CURRENTLY ON NASAL CANULA 4L, 02 SAT - 93%. REPOSITIONED FOR COMFORT. BED IN LOWEST POSITION, SIDE RAILS UP X2, CALL LIGHT WITHIN REACH. WILL ENDORSE CARE TO DAY SHIFT RN.
[2018-09-23 08:00] VITALS: BP 128/73
--- NOTE | 2018-09-23 08:00 | NUR ---
Opening Shift Note Assumed care of patient @ 0730, awake and alert. No S/S of pain. SOB on exertion, on 4 LPM oxygen via nasal cannula, saturation 95%. RT hand IV leaking, discontinued. Oral temperature 100.1, cooling measure done, will continue to monitor. See interventions for complete assessment. Patient wanted to be DNR per report from Delgado OLIVAS, will verify. Bed locked on low position, side rails up x2, bed alarms on at all times, call hogan within reach, instructed on POC and to call for assist PRN, will continue to monitor for changes Q1hr and PRN.
--- NOTE | 2018-09-23 08:05 | NUR ---
Spoke to patient at bedside with Delgado OLIVAS clarifying if patient wanted to be on Do Not Rescuscitate status. Patient states "Yes, I'm 78 years old, I worked hard as a all my life, I just want to let go and rest." This RN asked patient if he wants chest compression done if his heart stop beating, patient answered "No". This RN asked patient if he wants to be intubated if he has a hard time breathing, patient answered "No, just let me go." Will inform MD.
--- NOTE | 2018-09-23 09:30 | NUR ---
Patient's son Gino at bedside, informed by patient that he changed his code status from Full Code to DNR. Gino verbalized understanding and states "OK. If that's his decision."
[2018-09-23] MEDS: hydrALAZINE HCL 25 MG TAB PO SCH ×2 (10:24→22:00)
[2018-09-23] MEDS: DILTIAZEM HCL 120MG ER CAP PO SCH (10:25)
[2018-09-23] MEDS: PANTOPRAZOLE 40 MG TAB PO SCH (10:26)
[2018-09-23] MEDS: FUROSEMIDE 40 MG TAB PO SCH (10:26)
[2018-09-23] MEDS: AMIODARONE HCL 200 MG TAB PO SCH ×2 (10:26→21:55)
[2018-09-23] MEDS: ENOXAPARIN SOD 100 MG/1 ML SYRINGE SC SCH (10:27)
[2018-09-23] MEDS: ACETAMINOPHEN 325 MG TAB PO PRN ×2 (10:31→18:07)
[2018-09-23 11:54] VITALS: BP 111/70
--- NOTE | 2018-09-23 12:00 | NUR ---
Dr Barrera at bedside, updated on patient's status. Patient seen and examined. No new orders at this time.
--- NOTE | 2018-09-23 15:13 | NUR ---
Dr Ziegler at bedside, updated on patient's status. Informed of patient's decision to be DNR, Code Status Form signed by MD. Patient seen and examined. Received verbal order for PT consult and Telemetry downgrade. Verbal orders read back and verified. Will carry out.
[2018-09-23 16:00] VITALS: BP 122/97
[2018-09-23] MEDS: TAMSULOSIN HYDROCHLORIDE 0.4 MG CAP PO SCH (18:07)
--- NOTE | 2018-09-23 18:22 | NUR ---
PRN MED NEB ASSESSMENT. PT DENIES SOB. NO DISTRESS NOTED AT THIS TIME. POX 95% ON 4L NC HR 86 RR 18. TX NOT GIVEN.
--- NOTE | 2018-09-23 19:15 | NUR ---
Opening shift note Assumed care, a/o x 4 with no signs of distress and no c/o of pain. On O2 @ 2L/min/nasal cannula,sat 93%, barber catheter draining to a light petty urine, IV access patent and intact. Bed in lowest position with side rails up, bed alarm on and call light within reach. Encouraged to call if he needs something. Will continue care.
[2018-09-23 20:00] VITALS: BP 101/66
[2018-09-23] MEDS: ATORVASTATIN 20 MG TAB PO SCH (21:55)
[2018-09-23] MEDS: TEMAZEPAM 15 MG CAP PO PRN (21:57)
--- NOTE | 2018-09-23 21:57 | NUR ---
Complained of sleeplessness for 3 nights, temazepam 1 cap given po as ordered prn.
[2018-09-24 04:29] VITALS: BP 137/81
[2018-09-24] MEDS: InsuLIN REG 1unit/0.01ml Soln (100units/ml) SC SCH ×4 (06:00→17:48)
[2018-09-24] MEDS: ACCU-CHEK COMFORT CURVE STRIP VI SCH ×4 (06:20→17:47)
[2018-09-24] MEDS: MEROPENEM 1GM IVPB 100 ML IV SCH ×3 (06:20→22:21)
--- NOTE | 2018-09-24 07:36 | NUR ---
PRN [place] TX NOT INDICATED. PT IS AWAKE, ALERT AND ORIENTED. PT ON 4L/MIN VIA NC. 93% O2 SATS, HR 99 BPM, RR19, BS ARE DIMINISHED TO AUSCULTATION. RESPIRATIONS ARE EVEN AND NONLABORED. SKIN IS DRY AND WARM TO THE TOUCH. PT ON SEMI FOWLERS POSITION. PT DENIES SOB OR ANY OTHER RESPIRATORY DISTRESS. PT INSTRUCTED TO CALL IF [place] TX IS INDICATED. PT VERBALIZED UNDERSTANDING. WILL CONTINUE TO MONITOR PT.
--- NOTE | 2018-09-24 07:45 | NUR ---
Closing shift note Resting on bed with no signs of distress. Report given to Christine OLIVAS.
[2018-09-24 08:00] VITALS: BP 138/71
--- NOTE | 2018-09-24 08:00 | NUR ---
Opening Shift Note Assumed care of patient, Patient resting at this time. Patient A&Ox4. No S/S of pain or SOB. Patient on 4L nasal cannula, saturation 95%. IV right AC 22G patent clean, dry, and intact. IV left forearm pulled out, catheter intact, pressure dressing placed. Bed in the lowest position, side rails up x2, call light within reach. Patient instructed on POC and to call for assist PRN, will continue to monitor for changes Q1hr and PRN.
--- NOTE | 2018-09-24 09:15 | NUR ---
Report given to Tammy, patient going to room 298B. Patient taken to new room by Radha OLIVAS. All belongings taken with the patient. Patient on tele box 37.
[2018-09-24] MEDS: FUROSEMIDE 40 MG TAB PO SCH (09:29)
[2018-09-24] MEDS: hydrALAZINE HCL 25 MG TAB PO SCH ×2 (09:30→22:00)
[2018-09-24] MEDS: PANTOPRAZOLE 40 MG TAB PO SCH (09:30)
[2018-09-24] MEDS: DILTIAZEM HCL 120MG ER CAP PO SCH (09:30)
[2018-09-24] MEDS: ENOXAPARIN SOD 100 MG/1 ML SYRINGE SC SCH (09:31)
[2018-09-24] MEDS: AMIODARONE HCL 200 MG TAB PO SCH ×2 (09:31→22:22)
--- NOTE | 2018-09-24 09:45 | NUR ---
[facility] TRANSFER ASSUMED CARE OF PATIENT. SBAR RECEIVE FROM BRENDON NO. PATIENT IS ALERT AND ORIENTED. ON 5 LPM/NC. NO SIGNS OF SOB/DISTRESS NOTED. MA CATH INTACT, PATENT AND DRAINING STRAW YELLOW URINE TO GRAVITY. SAFETY PRECAUTIONS IN PLACE INCLUDING, BED SET TO LOWEST POSITION/LOCKED. BEDSIDE RAILS UP X2. CALL LIGHT WITHIN REACH. INSTRUCTED PT TO CALL FOR ASSISTANCE. PT VERBALIZED UNDERSTANDING. WILL CONTINUE TO MONITOR Q 1HR AND PRN.
[2018-09-24 12:43] VITALS: BP 120/70
[2018-09-24 13:46] VITALS: BP 124/72
--- NOTE | 2018-09-24 15:49 | NUR ---
NUTRITION ASSESSMENT NOTES Please refer to link notes of nutrition screen form filed under the intervention section of the plan of care for further details. Est. Needs: 1750 kcal to 2200 kcal (20-25 kcal/kgBW), 71 gms to 88 gms pro (0.8-1.0 gms/kgBW). Will continue to monitor pertinent labs and reassess nutrient need prn Thank you. Addendum: 09/24/18 at [address] Amended: Links added.
[2018-09-24] MEDS ORDERED: MORPHINE SULF INJ 2 MG/ML SYRINGE 1ML IV PRN (16:00)
[2018-09-24] MEDS ORDERED: HYDROcodone-ACET 5/325MG TAB PO PRN (16:00)
[2018-09-24 17:18] VITALS: BP 113/65
[2018-09-24] MEDS: TAMSULOSIN HYDROCHLORIDE 0.4 MG CAP PO SCH (17:56)
--- NOTE | 2018-09-24 19:10 | NUR ---
OPENING NOTE Received report from day shift RN. Patient is A&O X's 4 with no s/s of respiratory distress noted. Patient is receiving 5L O2 via NC at this time. Educated patient on POC and to use call light when in need of any assistance. Patient verbalized understanding. Bed is in lowest/locked position with side rails up X's 2 and call light is within reach. Will continue to monitor for changes and round hourly/PRN.
--- NOTE | 2018-09-24 19:11 | NUR ---
ENDORSED CARE TO BRENDON BRAGG.
[2018-09-24 22:00] VITALS: BP 106/60
[2018-09-24] MEDS: TEMAZEPAM 15 MG CAP PO PRN (22:21)
[2018-09-24] MEDS: ATORVASTATIN 20 MG TAB PO SCH (22:22)
--- NOTE | 2018-09-24 22:52 | NUR ---
Respiratory note: PT SEEN AND ASSESSED FOR PRN MED NEB TX AT 2252. TX NOT INDICATED AT THIS TIME. PT STATED THAT FEELS GOOD, HES JUST TIRED. NO SIGNS OF RESPIRATORY DISTRESS. HR 73 RR 18 POX 93 ON 5L NASAL CANNULA. PT AWARE TO CALL FOR RT IF ANY DISTRESS OCCURS.
[2018-09-25] MEDS: ACCU-CHEK COMFORT CURVE STRIP VI SCH ×3 (00:17→12:22)
[2018-09-25 05:00] VITALS: BP 120/67
[2018-09-25] MEDS: MEROPENEM 1GM IVPB 100 ML IV SCH (05:59)
[2018-09-25] MEDS: InsuLIN REG 1unit/0.01ml Soln (100units/ml) SC SCH ×3 (06:00→12:00)
--- NOTE | 2018-09-25 07:14 | NUR ---
ENDORSED CARE TO DAY SHIFT RN, ALONZO
--- NOTE | 2018-09-25 07:45 | NUR ---
OPENING NOTE ASSUMED CARE OF PT. PT IS LAYING ON BED, HOB SEMI-FOWLERS. AWAKE, ALERT AND ORIENTED. ON 5 LPM/NC. NO SIGNS OF SOB/DISTRESS NOTED. PT ON TELE #[id number], HR 90. SAFETY PRECAUTIONS IN PLACE INCLUDING, BED SET TO LOWEST POSITION/LOCKED. BEDSIDE RAILS UP X2. CALL LIGHT WITHIN REACH. INSTRUCTED PT TO CALL FOR ASSISTANCE. DISCUSSED POC WITH PT. PT VERBALIZED UNDERSTANDING. WILL CONTINUE TO MONITOR Q 1HR AND PRN.
[2018-09-25 09:03] VITALS: BP 112/81
[2018-09-25] MEDS: hydrALAZINE HCL 25 MG TAB PO SCH (09:56)
[2018-09-25] MEDS: DILTIAZEM HCL 120MG ER CAP PO SCH (09:58)
[2018-09-25] MEDS: PANTOPRAZOLE 40 MG TAB PO SCH (09:59)
[2018-09-25] MEDS: FUROSEMIDE 40 MG TAB PO SCH (09:59)
[2018-09-25] MEDS: AMIODARONE HCL 200 MG TAB PO SCH (09:59)
[2018-09-25] MEDS ORDERED: ENOXAPARIN SOD 40 MG/0.4 ML SYRINGE SC SCH (10:00)
[2018-09-25 13:01] VITALS: BP 109/62
--- NOTE | 2018-09-25 16:07 | NUR ---
Faxed home health order to [facility], I called [facility] and spoke with case management rn Nancy Martinez-patient already has home oxygen, a FWW and he denied the need for a BSC-I relayed this information to Nancy Martinez-she will call me back with the accepting home health agency.
--- NOTE | 2018-09-25 16:25 | NUR ---
I spoke with [facility] Title Curator Nancy Martinez-she said [facility] will see patient within 24-48 hours-phone [phone]-I relayed this information to patient's nurse.
[2018-09-25 16:34] VITALS: BP 107/59
[2018-09-25 16:43] VITALS: BP 112/58
--- NOTE | 2018-09-25 17:56 | NUR ---
Discharge instructions and paperwork given as ordered. Encourage to follow up with PMD as instructed. All questions and concerns addressed. Patient verbalized understanding. IV removed with catheter intact, pressure dressing applied, barber intact, patent and draining, educated on barber care. Telemetry unit returned to ICU.
--- NOTE | 2018-09-25 19:05 | NUR ---
Patient taken to vehicle via wheelchair with all personal belongings, accompanied by staff and family member. No distress noted at time of departure.
== END 2018-09-25 19:05 | disposition home or self-care (01) | DRG 871 ==
LOC: ER 13:38 → EDBD 13:38 → TELE 21:22 → DOU IN ICU 22:26 → TELE-WESTW 09-24 10:54
PROVIDERS: ADMIT Nurse Practitioner; ATTEND Internal Medicine
DX: A41.9 Sepsis, unspecified organism (principal); I50.43 Acute on chronic combined systolic (congestive) and diastolic (congestive) heart failure; J96.01 Acute respiratory failure with hypoxia; K92.0 Hematemesis; D68.9 Coagulation defect, unspecified; I13.0 Hypertensive heart and chronic kidney disease with heart failure and stage 1 through stage 4 chronic kidney disease, or unspecified chronic kidney disease; N17.9 Acute kidney failure, unspecified; N13.6 Pyonephrosis; B96.1 Klebsiella pneumoniae [K. pneumoniae] as the cause of diseases classified elsewhere; E83.42 Hypomagnesemia; I25.10 Atherosclerotic heart disease of native coronary artery without angina pectoris; I48.0 Paroxysmal atrial fibrillation; N18.3 Chronic kidney disease, stage 3 (moderate); N40.1 Benign prostatic hyperplasia with lower urinary tract symptoms; K80.20 Calculus of gallbladder without cholecystitis without obstruction; B95.7 Other staphylococcus as the cause of diseases classified elsewhere; E11.22 Type 2 diabetes mellitus with diabetic chronic kidney disease; J44.9 Chronic obstructive pulmonary disease, unspecified; K57.30 Diverticulosis of large intestine without perforation or abscess without bleeding; N21.0 Calculus in bladder; Z80.1 Family history of malignant neoplasm of trachea, bronchus and lung; Z82.49 Family history of ischemic heart disease and other diseases of the circulatory system; Z86.73 Personal history of transient ischemic attack (TIA), and cerebral infarction without residual deficits; Z79.01 Long term (current) use of anticoagulants; I25.2 Old myocardial infarction; Z99.81 Dependence on supplemental oxygen; Z95.1 Presence of aortocoronary bypass graft
CPT/HCPCS: 36415; 36600; 51702; 71045; 74176; 76775; 80048; 80053; 81001; 82150; 82805; 82962; 83605; 83690; 83735; 83880; 84484; 85014; 85018; 85025; 85610; 85730; 86850; 86900; 86901; 87040; 87077; 87081; 87086; 87186; 93005; 93306; 96361; 96365; 96367; 96375; G0378; J0330; J0696; J1815; J2185; J2250; J7060